=== PATIENT | female | born 1975 | race Caucasian/White ===

== ENCOUNTER 2025-08-25 19:14 | Emergency (ER) | payer OTHER ==
[~2025-08-25] VITALS: Ht 162.6 cm; Wt 64.4 kg
[2025-08-25 20:01] LABS: IMMATURE GRANULOCYTE ABSOLUTE 0.04 K/uL (0-1); NUCLEATED RED BLOOD CELLS 0.0 % (0.0-0.19); PLATELET COUNT (AUTO) 156 K/uL (130-400); RED BLOOD CELL COUNT(AUTO) 2.36 MIL/uL (4.00-5.50); RED CELL DISTRIBUTION WIDTH 13.3 % (11.0-15.5); WHITE BLOOD COUNT (AUTO) 6.1 K/uL (4.8-10.8)
[2025-08-25 20:10] LABS: CREATININE 0.6 mg/dL (0.5-1.0); GLOMERULAR FILTR. RATE CALC 110.0 mL/min (>90); GLUCOSE,RANDOM 94.0 mg/dL (70-105); SODIUM SERUM 141.0 mmol/L (136-145); UREA NITROGEN, BLOOD 8.0 mg/dL (7-18)
--- NOTE | 2025-08-25 20:49 | ERN ---
ED Note History of Present Illness Stated Complaint: C/O DIZZINESS, NAUSEA, "LOW HEMOGLOBIN" Chief Complaint: Dizzy/Light Headed Time Seen by MD: 19:32 Dictation: This is a 50-year-old female who presented to the emergency room with complaints of dizziness and weakness and also nausea.. Patient underwent extensive cosmetic surgery which included liposuctioned, arm lift, back lift on Monday in [place]. She was told that her hemoglobin was 7 and she received 1 unit of PRBC transfusion. Patient indicated that she also received and anticoagulant so she would not get a blood clot. After a unit of transfusion, she was given clindamycin to complete 5 days and was discharged to home. She was also instructed to remove the drains herself in 7-10 days. Patient continued to feel dizzy and she came into the ER today to be re-evaluated. No history of any fever chills or rigors. They drains have not been draining a lot of blood. Temperature 98.3 pulse 93 respirations 20 blood pressure 166/106 with a pulse oximetry of 99% on room air Chronic medical problems include asthma and hypertension. The other surgical procedures that she had so far is gastric bypass surgery (Robyn-en-Y)-3 years ago and tummy tuck, butt lift Patient is originally from [place] but travelled to [place] for the procedure Allergies: Coded Allergies: No Known Allergies (Unverified Allergy, Unknown, 08/25/25) morphine (Unverified Allergy, Unknown, 08/25/25) Past Medical History Past Medical History: Asthma, Hypertension Surgical History: Appendectomy, Hysterectomy, Other Surgical History Other: GASTRIC BYPASS, BILATERAL ARM LIFTS, BACK LIFT, LIPOSUCTION Family History: Negative Social History: Negative RN Note Reviewed/Agreed w/PFSH: Yes Review of System Dictation Constitutional: Negative for fever,chills, and weight loss Eyes: Negative for injury, pain,redness, and discharge ENT: Negative for injury,pain or swelling Cardiovascular: Negative for chest pain, palpitations, and edema, fatigue and dizziness Respiratory: Negative for shortness of breath, cough, and wheezing, Abdomen/GI: Negative for abdominal pain, nausea, vomiting, diarrhea, and constipation Back: Negative for injury and pain : Negative for injury, bleeding and discharge MS/Extremity: Negative for injury and deformity Skin: Negative for rash, and discoloration Neuro: Negative for headache, weakness, numbness, tingling, and seizure Psych: Negative for suicide ideation, homicidal ideation, and hallucinations Initial Vital Sign VS Vital Signs Date Time Temp Pulse Resp B/P (MAP) Pulse Ox O2 Delivery O2 Flow Rate FiO2 08/25/25 19:21 98.2 93 20 166/106 99 Room Air 08/25/25 20:06 0 21 Physical Exam Dictation General: awake, alert, NAD , pale Head/Face: Normocephalic, atraumatic Eyes: PERRL, EOMI, vision at baseline ENT: oral cavity clear, TMs clear, no signs of infection Neck: Trachea midline, supple, no nuchal rigidity Cardiovascular: RRR, normal S1/S2, No MRGs, no JVD Respiratory: CTAB, no respiratory distress, No rales or wheezes Abdomen: Soft, non-tender, non-distended, normal bowel sounds, no guarding or rebound. Extensive ecchymosis of the anterior abdominal wall back. She has 2 drains in the suprapubic area open to air. She also has a 1 large 1 in the left breast area which is a KERLINE drain with a less than 5 cc of veronika blood in the bulb. There is no evidence of any necrotic skin, induration or purulent drainage. Incision sites look clean. Skin: Warm, dry, normal turgor, no rash MS/Extremity: Pulses equal, no cyanosis, neurovascular intact, FROM Neuro: COAx4, GCS 15, strength 5/5, CN 2-12 intact, normal cerebellar exam, normal gait, Psych: Normal behavior, mood, and affect normal Extremities-trace edema without any palpable cords, Homans sign is negative Results (Laboratory/Radiology) Laboratory/Radiology Laboratory Tests Test 08/25/25 19:49 08/25/25 21:02 White Blood Count 6.1 K/uL (4.8-10.8) Red Blood Count 2.36 MIL/uL (4.00-5.50) L Hemoglobin 7.5 g/dL (12.0-16.0) L Hematocrit 22.7 % (36-48) L Mean Corpuscular Volume 96.2 fL (79-99) Mean Corpuscular Hemoglobin 31.8 pg (27.0-33.0) Mean Corpuscular Hemoglobin Concent 33.0 g/dL (32.0-36.0) Red Cell Distribution Width 13.3 % (11.0-15.5) Platelet Count 156 K/uL (130-400) Mean Platelet Volume 11.4 fL (7.5-10.5) H Immature Granulocyte % (Auto) 0.7 % (0-1) Neutrophils (%) (Auto) 66.3 % (40.0-77.0) Lymphocytes (%) (Auto) 23.5 % (21.0-51.0) Monocytes (%) (Auto) 7.2 % (3.0-13.0) Eosinophils (%) (Auto) 1.8 % (0.0-8.0) Basophils (%) (Auto) 0.5 % (0.0-5.0) Neutrophils # (Auto) 4.1 K/uL (1.8-7.7) Lymphocytes # (Auto) 1.4 K/uL (1.0-4.8) Monocytes # (Auto) 0.4 K/uL (0.1-1.0) Eosinophils # (Auto) 0.11 K/uL (0.00-0.70) Basophils # (Auto) 0.03 K/uL (0.00-0.20) Absolute Immature Granulocyte (auto 0.04 K/uL (0-1) Nucleated Red Blood Cells 0.0 % (0.0-0.19) Sodium Level 141 mmol/L (136-145) Potassium Level 3.2 mmol/L (3.5-5.1) L Chloride Level 104 mmol/L (101-111) Carbon Dioxide Level 29 mmol/L (21-32) Blood Urea Nitrogen 8 mg/dL (7-18) Creatinine 0.6 mg/dL (0.5-1.0) Glomerular Filtration Rate Calc 110 mL/min (>90) Random Glucose 94 mg/dL (70-105) Total Calcium 7.9 mg/dL (8.5-10.1) L Urine Color COLORLESS (YELLOW) Urine Appearance CLEAR (CLEAR) Urine pH 7.0 (5.0-8.0) Urine Specific [place] 1.009 (1.001-1.031) Urine Protein NEGATIVE mg/dL (NEGATIVE) Urine Glucose (UA) NEGATIVE mg/dL (NEGATIVE) Urine Ketones 10 mg/dL (NEGATIVE) H Urine Occult Blood NEGATIVE (NEGATIVE) Urine Nitrate NEGATIVE (NEGATIVE) Urine Bilirubin NEGATIVE mg/dL (NEGATIVE) Urine Urobilinogen 0.2 mg/dL (0.2-1.0) Urine Leukocyte Esterase NEGATIVE Ching/uL Labs Reviewed?: Yes ED Course ED Course Orders Procedure Category Date Status Time Cbc With Differential LAB 08/25/25 Complete 19:35 Basic Metabolic Panel LAB 08/25/25 Complete 19:35 Urinalysis Profile LAB 08/25/25 Complete 19:35 Type And Screen BBK 08/25/25 Complete 19:43 Morphine 2mg Syg PHA 08/25/25 Complete (Morphine 2mg Syg) 21:00 Pantoprazole 40mg Inj PHA 08/25/25 Complete (Protonix 40mg Inj 21:00 Ondansetron 4mg Inj PHA 08/25/25 Complete (Zofran 4mg Inj) 21:00 Potassium Bicarb/Cit PHA 08/25/25 Complete Ac 25meq (K-Lyte Ta 21:00 Calcium Gluc 1gm PHA 08/25/25 In Process (Calcium Gluc 1gm 21:00 Current Medications Medications (Trade) Dose Ordered Sig/Kendall Route PRN Reason Start Time Stop Time Status Last Admin Dose Admin Calcium Gluconate 1 gm/Sodium Chloride 100 ml @ 0 mls/hr PROTOCOL IV 08/25/25 21:00 09/24/25 20:59 08/25/25 22:30 Morphine Sulfate (morPHINE 2MG SYG) 2 mg ONCE ONCE IVP 08/25/25 21:00 08/25/25 21:06 DC Ondansetron HCl (zoFRAN 4MG INJ) 4 mg ONCE ONCE IVP 08/25/25 21:00 08/25/25 21:06 DC 08/25/25 21:04 Pantoprazole Sodium (PROTonix 40MG INJ) 40 mg ONCE ONCE IVP 08/25/25 21:00 08/25/25 21:06 DC 08/25/25 21:04 Potassium Bicarbonate (K-Lyte Tablet Eff 25 Meq Tablet.eff) 25 meq ONCE ONCE PO 08/25/25 21:00 08/25/25 21:06 DC 08/25/25 22:30 Vital Signs Date Time Temp Pulse Resp B/P (MAP) Pulse Ox O2 Delivery O2 Flow Rate FiO2 08/25/25 20:06 98.4 80 18 130/80 98 Room Air* 0 21 08/25/25 19:21 98.2 93 20 166/106 99 Room Air Medical Decision Making MDM Differential diagnosis: Postop anemia, chronic iron deficiency anemia due to gastric bypass surgery, dehydration, postop blood loss, UTI or sepsis This is a 50-year-old female who presented to the emergency room with complaints of dizziness and weakness and also nausea.. Patient underwent extensive cosmetic surgery which included liposuctioned, arm lift, back lift on Monday in [place]. She was told that her hemoglobin was 7 and she received 1 unit of PRBC transfusion. Patient indicated that she also received and anticoagulant so she would not get a blood clot. After a unit of transfusion, she was given clindamycin to complete 5 days and was discharged to home. She was also instructed to remove the drains herself in 7-10 days. Patient continued to feel dizzy and she came into the ER today to be re-evaluated. No history of any fever chills or rigors. They drains have not been draining a lot of blood. Temperature 98.3 pulse 93 respirations 20 blood pressure 166/106 with a pulse oximetry of 99% on room air Chronic medical problems include asthma and hypertension. The other surgical procedures that she had so far is gastric bypass surgery (Robyn-en-Y)-3 years ago and tummy tuck, butt lift Patient is originally from [place] but travelled to [place] for the procedure 8:50 p.m. labs reviewed CBC showed a white count of 6.1 hemoglobin 7.5 platelets 156. BNP 7 is significant for a potassium of 3.2 and calcium of 7.9. Urinalysis is unremarkable I updated the patient on the labs and plans to replete potassium and also calcium. I explained to her that there is no emergent indication to transfuse her with a hemoglobin of 7.5. I did instruct her that long-term complications with Robyn-en-Y are iron deficiency anemia, vitamin B12 deficiency, vitamin-D deficiency and electrolyte abnormalities and hypoalbuminemia. I instructed her to get periodic labs and follow up with her primary care physician I do not have any labs done in [place] to compare and there is no obvious large amount of bleeding from the drains. Rationale: Tests considered and ordered secondary to shared decision making include: Labs and urinalysis Previous outside records reviewed: Old ER visits. Risk of complication and/or morbidity or mortality of patient management: None Medications-Per medication reconciliation Need for hospitalization: Patient does not meet criteria for hospitalization. Need for emergency major/minor surgery: No There are no social concerns with this patient. Prescription drug management Prescriptions will include symptomatic care Patient's prior external medical records from other ER visits were reviewed by me as indicated. Prior testing and results from previous visits were reviewed. Prior tests were taken into account with medical decision making and resource u tilization, independent historian/historians were used to obtain complete medical history. I independently interpreted the test that were performed, results were reviewed by me and considered findings on radiology if ordered. Medical management and examination interpretation discussions were had by me with other qualified healthcare professionals as indicated for the patient's ca re. Problem List Problem List: (1) Postoperative anemia (2) History of Robyn-en-Y gastric bypass (3) Hypokalemia (4) Hypocalcemia DX & DISP Disposition: Discharge Departure Impression: Primary Impression: Postoperative anemia Additional Impressions: History of Robyn-en-Y gastric bypass, Hypokalemia, Hypocalcemia Condition: Stable Additional Instructions: Patient and the caregiver have been informed of all the diagnostic tests and the imaging conducted during the today's visit to the emergency room and has verbalized understanding of the results I have personally reviewed and interpreted all diagnostic exams performed here in the ER today as well as the vital signs documented by the nursing staff. The patient is now being discharged to home and should follow up with the primary care physician or the specialist as directed by the ER staff. Your anemia is likely combination of chronic due to Robyn-en-Y gastric bypass as well as acute blood loss from cosmetic surgical procedures. It is very important for you to follow up with the your local physician and have the hemoglobin tested periodically. If you have any worsening bleeding from the drains or worsening symptoms, please return to the emergency room if you are still here locally CESARIO FLETCHER MD Aug 25, 2025 20:49
[2025-08-25 21:17] LABS: APPEARANCE,URINE CLEAR (CLEAR); GLUCOSE, URINE (UA) NEGATIVE (NEGATIVE); LEUKOCYTE ESTERASE ,URINE NEGATIVE Leu/uL (NEGATIVE); NITRATE,URINE NEGATIVE (NEGATIVE); OCCULT BLOOD,URINE NEGATIVE (NEGATIVE)
[2025-08-25 21:19] LABS: ADD UA MICROSCOPIC NO
[2025-08-25] MEDS: CALCIUM GLUC 1GM 1 GM in 0.9%NACL 100ML 100 ML IV SCH (22:30)
[2025-08-26 00:07] VITALS: BP 134/75; PULSE 74; RESP 16; TEMP 98.2; O2SAT 100
== END 2025-08-26 00:10 | disposition home or self-care (01) ==
LOC: EDH 19:14
DX: D64.89 Other specified anemias (principal); E87.6 Hypokalemia; E83.51 Hypocalcemia; R42 Dizziness and giddiness; I10 Essential (primary) hypertension; J45.909 Unspecified asthma, uncomplicated; Z88.5 Allergy status to narcotic agent; Z98.84 Bariatric surgery status; Z90.49 Acquired absence of other specified parts of digestive tract; Z90.710 Acquired absence of both cervix and uterus
CPT/HCPCS: 99284; 96365; 96375; 96366; 80048; 85025; 86850; 86900; 86901; 81003; 36415; J0612; J2405; J2470; J2270